=== PATIENT | male | born 1960 | race Caucasian/White ===

== ENCOUNTER 2019-09-08 20:44 | Emergency (ER) | payer OTHER ==
[2019-09-08] MEDS ORDERED: Ketorolac 60 MG/2 ML SDV IM ONE (20:59)
[2019-09-08] MEDS ORDERED: Diphtheria,Pertussis(Acell),Tetanus Vaccine 0.5 ML Syringe IM ONE (21:00)
--- NOTE | 2019-09-08 21:05 | EDM.PDOC ---
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 He has a small laceration that he cannot get to stop bleeding and he can hardly walk on the leg due to the pain. He was able to drive home and then his brought him to the ER. Right Lower Leg Pain Score (Numeric/FACES): 8 - Related Data Allergies Allergy/AdvReac Type Severity Reaction Status Date / Time No Known Allergies Allergy Verified 09/08/19 20:51 Home Meds: Home Meds Acetaminophen/oxyCODONE [Percocet 325-5 MG] 1 - 2 each PO Q4HR 10 Days #30 tab 09/08/19 [Rx] Aspirin 81 mg PO DAILY 09/08/19 [History] Ibuprofen 800 mg PO Q8HR 10 Days #90 tablet 09/08/19 [Rx] Ondansetron [Zofran ODT] 4 mg PO Q6H PRN 10 Days #15 tab.dis 09/08/19 [Rx] Review of Systems - Review of Systems Review Of Systems: See Below Constitutional: Reports: No Symptoms Eyes: Reports: No Symptoms Ears: Reports: No Symptoms Nose: Reports: No Symptoms Mouth/Throat: Reports: No Symptoms Respiratory: Reports: No Symptoms Cardiovascular: Reports: No Symptoms GI/Abdominal: Reports: No Symptoms Genitourinary: Reports: No Symptoms Musculoskeletal: Reports: Leg Pain (right lower leg) Skin: Reports: Other (laceration to anterior right lower extremity, 1cm, mildly bleeding) Neurological: Reports: No Symptoms Psychiatric: Reports: No Symptoms ED EXAM, GENERAL - Physical Exam Exam: See Below General Appearance: Alert, WD/WN, No Apparent Distress Ears: Hearing Grossly Normal Nose: Normal Inspection Throat/Mouth: Normal Lips, Normal Teeth Head: Atraumatic, Normocephalic Neck: Normal Inspection Respiratory/Chest: No Respiratory Distress Cardiovascular: Regular Rate, Rhythm GI/Abdominal: Soft (Male) Exam: Deferred Rectal (Males) Exam: Deferred Back Exam: Normal Inspection Extremities: Leg Pain (mild swelling and tenderness to right anterior l/e, light brusing noted; note 1 cm laceration with clean edges, mildly bleeding towards anterior proximal region of the right lower leg) Neurological: Alert, Oriented, CN II-XII Intact, Normal Cognition Psychiatric: Normal Affect, Normal Mood Skin Exam: Warm, Dry, Intact Lymphatic: No Adenopathy ED TRAUMA EXTREMITY PROCEDURES - Laceration/Wound Repair Right Anterior Proximal Leg Appearance: Subcutaneous Distal NVT: Neuro & Vascular Intact, No Tendon Injury Anesthetic Type: Local Local Anesthesia - Lidocaine (Xylocaine): 2% with EPI Local Anesthetic Volume: 4cc Skin Prep: Chlorhexidine (Hibiciens), Saline Exploration/Debridement/Repair: Wound Explored, No Foreign Material Found Closed With: Sutures Suture Size: 4-0 # of Sutures: 3 Suture Type: Other (Vicryl) Drain Placement: No Sterile Dressing Applied: Provider Tetanus Status Addressed: Yes Complications: No Progress/Comments: TdaP update today. Patient tolerated procedure well. Course - Vital Signs Text/Narrative:: 2099 The patient was seen by the [facility]. Xray was ordered. Toradol 60 mg IM ordered for pain. 2209 Laceration was repaired. See procedure note. Tdap was updated. Xray report reviewed. Note nondisplaced fracture of midshaft proximal right tibia. Patient reporting some pain relief from the Toradol. 2224 Contacted [facility] and will have patient go to [facility] tomorrow for Ortho consult. 2234 Patient placed in right lower extremity CAM boot and instructed on crutches. Patient and his were given discharge instructions and he was sent home in stable condition. Last Recorded V/S: Last Vital Signs Temp 37.0 C 09/08/19 20:45 Pulse 97 09/08/19 20:45 Resp 16 09/08/19 20:45 BP 145/92 H 09/08/19 20:45 Pulse Ox 96 09/08/19 20:45 - Orders/Labs/Meds Orders: Active Orders 24 hr Category Date Time Status Vaccines to be Administered [RC] PER UNIT ROUTINE Care 09/08/19 21:01 Active Tibia Fibula Rt [CR] Stat Exams 09/08/19 20:59 Taken Meds: Medications Discontinued Medications Generic Name Dose Route Start Last Admin Trade Name Freq PRN Reason Stop Dose Admin Hydrocodone Bitart/Acetaminophen 1 packet 09/08/19 22:58 09/08/19 23:02 Take Home: Acetam/Hydrocodon 325-5 Mg, 5 Pack PO 09/08/19 22:59 1 packet ONETIME ONE Administration Diphtheria/Tetanus/Acell Pertussis 0.5 ml 09/08/19 21:00 09/08/19 21:34 Adacel IM 09/08/19 21:01 0.5 ml .ONCE ONE Administration Ketorolac Tromethamine 60 mg 09/08/19 20:59 09/08/19 21:41 Toradol IM 09/08/19 21:00 60 mg ONETIME ONE Administration Lidocaine/Epinephrine 20 ml 09/08/19 21:21 09/08/19 21:27 Xylocaine 2% With Epinephrine 1:100,000 INJECT 09/08/19 21:22 20 ml ONETIME ONE Administration Departure - Departure Time of Disposition: 22:43 Disposition: Home, Self-Care 01 Preliminary Cause of *Q: Sepsis & Multi System Organ Failure Condition: Good Clinical Impression: Closed tibia fracture, Laceration of lower leg, Fracture of tibia, Need for Tdap vaccination, Work related injury - Discharge Information *PRESCRIPTION DRUG MONITORING PROGRAM REVIEWED*: No *COPY OF PRESCRIPTION DRUG MONITORING REPORT IN PATIENT BUCK: No Prescriptions: Acetaminophen/oxyCODONE [Percocet 325-5 MG] 1 - 2 each PO Q4HR 10 Days #30 tab Ibuprofen 800 mg PO Q8HR 10 Days #90 tablet Ondansetron [Zofran ODT] 4 mg PO Q6H PRN 10 Days #15 tab.dis PRN Reason: Nausea Instructions: Laceration Care, Adult, VIS, Diphtheria, Tetanus, and Pertussis ( DTaP) - CDC (04/08/2007), Tibial Fracture, Adult Referrals: PCP,None [Primary Care Provider] - Forms: ED Department Discharge Additional Instructions: -Wear CAM boot on right lower extremity at all times until seen by Orthopedics. Orthopedics will give you further instructions. -Crutches when walking. NO WEIGHT BEARING ON RIGHT LEG. -Elevate the right leg and apply ice as needed. -Oxycodone/APAP 5/325mg 1-2 tabs oral every 4-6 hours as needed for severe pain #5 (ER) #30 (Rx) -Ibuprofen 800mg oral every 8 hours as needed #90 (Rx). May also use over the counter ibuprofen. -Ondanstron 4mg oral every 6 hours as needed if you become nauseated from pain meds #15 (Rx) -Go to [facility] tomorrow between 8a-4p. Your xrays have been sent digitally and they will be able to see them. -Keep the laceration covered with dressing and antibiotic ointment. Wash wound daily and watch for infection. You may leave the area open to area after 3-4 days. The sutures do not need to be removed and will dissolve over the 3-4 weeks. -Return to the ER if you have nay further questions or concerns. - My Orders Last 24 Hours: My Active Orders 09/08/19 20:59 Tibia Fibula Rt [CR] Stat 09/08/19 21:01 Vaccines to be Administered [RC] PER UNIT ROUTINE - Assessment/Plan Last 24 Hours: My Active Orders 09/08/19 20:59 Tibia Fibula Rt [CR] Stat 09/08/19 21:01 Vaccines to be Administered [RC] PER UNIT ROUTINE
[2019-09-08] MEDS ORDERED: Lidocaine 2% with EPINEPHrine 1:100,000 20 ML MDV INJECT ONE (21:21)
[2019-09-08] MEDS ORDERED: Take Home: Acetaminophen/HYDROcodone 325-5 MG, 5 Tab Pack PO ONE (22:58)
--- NOTE | 2019-09-09 07:35 | CR ---
[id number] RAD/RAD Tibia Fibula Right EXAM: RAD Tibia Fibula Right CLINICAL DATA: TRAUMA COMPARISON: NO PREVIOUS SIMILAR EXAM IS AVAILABLE. FINDINGS: There appears to be a nondisplaced fracture of the proximal right tibia There is soft tissue injury. CAT scan may be helpful. IMPRESSION: COMPOUND PROXIMAL RIGHT TIBIAL INJURY Alcides Gillette MD 09/09/19 0734 Thank you for allowing us to participate in the care of your patient.
== END 2019-09-08 23:11 | disposition home or self-care (01) ==
LOC: VM.ED 20:44
DX: S82.101A Unspecified fracture of upper end of right tibia, initial encounter for closed fracture (principal); S81.811A Laceration without foreign body, right lower leg, initial encounter; Z23 Encounter for immunization; W20.8XXA Other cause of strike by thrown, projected or falling object, initial encounter; Y93.89 Activity, other specified
CPT/HCPCS: 12001; 73590; 90471; 90715; 96372; 99283; A9270; J1885